=== PATIENT | male | born 1990 | race Caucasian/White ===

== ENCOUNTER 2021-10-22 04:10 | Emergency (ER) | payer OTHER, BC, SELFPAY ==
[2021-10-22 04:13] VITALS: BP 153/74; PULSE 72; RESP 17; TEMP 36.2; O2SAT 100
--- NOTE | 2021-10-22 04:51 | ED.GENADULT ---
HPI - General Adult General Chief complaint: Wound/Laceration Stated complaint: Head injury, head lac Time Seen by Provider: 10/22/21 04:40 History of Present Illness HPI narrative: She is a 31-year-old gentleman who presents the emergency department with chief complaint of head injury patient reports that he was at [employer] and pulled something down the try to prevent it from falling and it struck him in the forehead. The patient denies loss of consciousness reports a small laceration to his forehead that was continuing to bleed. Patient states he is unsure of his last tetanus shot Related Data Allergies Allergy/AdvReac Type Severity Reaction Status Date / Time No Known Allergies Allergy Verified 10/22/21 04:16 Review of Systems Review of Systems: A 10 system review of systems was completed on the patient and is negative except for what is stated in the HPI. Nursing and ancillary documentation was reviewed. Exam Narrative: GENERAL: Well-appearing, well-nourished, and in no acute distress. HEAD: Normocephalic, 2 cm laceration of the forehead. EYES: PERRLA and EOMI. ENT: Nares clear, no rhinorrhea or epistaxis. Mucous membranes moist. NECK: Supple. CHEST: Clear to auscultation. No respiratory distress. HEART: Regular rate and rhythm. No murmur heard. Normal peripheral pulses. ABDOMEN: Soft, nontender, nondistended, normal active bowel sounds. EXTREMITIES: Normal range of motion. No edema. SKIN: Warm, dry, no rash. NEURO: No focal deficits. Alert and oriented x3. PSYCH: Normal mood and affect. Course Vital Signs Vital signs: Vital Signs Temperature 36.2 C L 10/22/21 04:13 Pulse Rate 72 10/22/21 04:13 Respiratory Rate 17 10/22/21 04:13 Blood Pressure 153/74 H 10/22/21 04:13 Pulse Oximetry 100 10/22/21 04:13 Temperature 36.2 C L 10/22/21 04:13 Pulse Rate 72 10/22/21 04:13 Respiratory Rate 17 10/22/21 04:13 Blood Pressure 153/74 H 10/22/21 04:13 Pulse Oximetry 100 10/22/21 04:13 Procedures Laceration Laceration 1: Date: 10/22/21 Time: 04:54 Site: face Size (cm): 2 Description: linear Depth: simple, single layer ====== Skin Level ====== Skin layer closed with: dermabond ====== Subcutaneous Layer ====== ====== Muscle Layer ====== ====== Tendon Layer ====== Medical Decision Making Vital Signs Vital Signs: Vital Signs Temperature 36.2 C L 10/22/21 04:13 Pulse Rate 72 10/22/21 04:13 Respiratory Rate 17 10/22/21 04:13 Blood Pressure 153/74 H 10/22/21 04:13 Pulse Oximetry 100 10/22/21 04:13 Temperature 36.2 C L 10/22/21 04:13 Pulse Rate 72 10/22/21 04:13 Respiratory Rate 17 10/22/21 04:13 Blood Pressure 153/74 H 10/22/21 04:13 Pulse Oximetry 100 10/22/21 04:13 Discharge Plan Discharge Clinical Impression: Laceration Patient Disposition: Home, Self-Care Condition: Stable Instructions: Antibiotic Form, Skin Adhesive Care (ED), Laceration (ED) Follow-up/Referrals: PHYSICIAN,UTILITY ENGINEER [Primary Care Provider] - Eder Mallory DO [Physician] - Time of Disposition: 04:55
[2021-10-22] MEDS: TETANUS,DIPHTHERIA,AC PERTUSSIS ADULT (0.5 ML) BOOSTRIX IM (05:15)
== END 2021-10-22 05:25 | disposition home or self-care (01) ==
PROVIDERS: Emergency Provider Emergency Medicine
DX: S01.81XA Laceration without foreign body of other part of head, initial encounter (principal); W20.8XXA Other cause of strike by thrown, projected or falling object, initial encounter; Z23 Encounter for immunization
CPT/HCPCS: 12011; 90715; 99282